=== PATIENT | female | born 1980 | race Caucasian/White ===

== ENCOUNTER 2020-06-24 23:59 | Emergency (ER) | payer OTHER ==
[2020-06-25] MEDS ORDERED: NORFLEX 100 MG100 MG PO (02:17)
[2020-06-25] MEDS ORDERED: LODINE CAP 300300 MG PO (02:17)
== END 2020-06-25 02:22 | disposition home or self-care (01) ==
LOC: ER1 23:59
DX: S43.402A Unspecified sprain of left shoulder joint, initial encounter (principal); S53.402A Unspecified sprain of left elbow, initial encounter; S63.502A Unspecified sprain of left wrist, initial encounter; I10 Essential (primary) hypertension; F41.9 Anxiety disorder, unspecified; W19.XXXA Unspecified fall, initial encounter; X50.9XXA Other and unspecified overexertion or strenuous movements or postures, initial encounter
CPT/HCPCS: 73030; 73060; 73090; 73110; 73130; 99283